=== PATIENT | female | born 1990 ===

== ENCOUNTER 2024-05-09 00:42 | Outpatient (CLI) | payer MEDICAID, SELFPAY ==
[2024-05-09] MEDS: Inhaler, Assist Device 1 EACH MC (13:48)
[2024-05-09] MEDS: Levalbuterol HFA 15 GM INH 4 PUFF IH (13:48)
--- NOTE | 2024-05-12 14:41 | W.PFT ---
Date of service: 05/09/24 Time of Service: 12:50 Pulmonary Function Test Result Indications: Asthma Interpretation Spirometry: No airflow limitation. No bronchodilator response. Lung Volumes: Normal lung volumes Diffusion Capacity: Normal diffusion Airway Pressure: Normal airways resistance Impression Normal pulmonary function Clinical Correlation therefore is recommended.
== END 2024-05-09 00:43 | disposition home or self-care (01) ==
LOC: RT 00:42
PROVIDERS: PCP Nurse Practitioner Family; Visit Provider Student in an Organized Health Care Education/Training Program
DX: J45.909 Unspecified asthma, uncomplicated (principal)
CPT/HCPCS: 94060; 94726; 94729

== ENCOUNTER 2024-05-23 00:47 | Outpatient (CLI) | payer MEDICAID, SELFPAY ==
--- NOTE | 2024-05-23 | DI.US_ITS ---
Exam(s) US BREAST RT COMPLETE EXAM: US BREAST RT COMPLETE CLINICAL HISTORY: Mass of rt breast, 10 o'clock, 3 cm from edge of areola, N63.10-Unspecified. TECHNIQUE: Complete ultrasound of the breast was performed including all 4 quadrants, the retroareo lar region, and the ipsilateral axilla. COMPARISON: Prior mammograms were reviewed. FINDINGS: See combined report IMPRESSION: See combined report Breast density Category C or D implies that the patient has dense breast tissue. Dense breast tissue can make it harder to find cancer on a mammogram. Dense breast tissue is also associated with an incr eased risk of breast cancer. This information about the result of the mammogram report was provided to the patient to raise their awareness. Use this report when you speak with the patient about their risks for breast cancer, which includes their family history. At that time, you may recommend additional screening tests (Ultrasoun d or MRI) as these tests may add significant information. A negative radiographic report should not delay biopsy if a dominant or clinically suspicious mass is present. Up to ten percent of cancers are not identified on mammography. A negative report may reinforce clinical impression. Adenosis and dense breasts may obscure an underlying neoplasm. False positive reports average 6 to 10%. Patient will receive a letter notifying them of these results.
--- NOTE | 2024-05-23 13:48 | DI.MAMMO_ITS ---
Exam(s) MAMMO DIAGNOSTIC BI EXAM: MAMMO DIAGNOSTIC BI AND COMPLETE RIGHT BREAST ULTRASOUND CLINICAL HISTORY: Mass of rt breast, N63.10-unspecified lump in rt breast. TECHNIQUE: BILATERAL CC AND MLO MAMMOGRAPHIC IMAGES were obtained with 3D tomosynthesis technique an d utilizing computer aided detection (CAD). Also performed exaggerated CC view of the right breast COMPLETE RIGHT BREAST ULTRASOUND performed including all 4 quadrants as well as the axillary region. COMPARISON: This is a baseline study on this 33-year-old patient who recently felt a lump in the upp er outer quadrant of her right breast. She feels that it has slightly decreased in size. She denies recent skin rash. FINDINGS: DIAGNOSTIC BILATERAL MAMMOGRAM: There are no CAD designations. No spiculated masses nor malignant-appearing microcalcification groups in either breast. There is no significant architectural distortion or skin thickening-retraction. COMPLETE RIGHT BREAST ULTRASOUND: There is no evidence of solid or significant cystic lesions in all 4 quadrants of the right breast. Scanning of the right axilla is negative for significant adenopathy. IMPRESSION: 1. No radiographic evidence of malignancy 2. Negative complete right breast ultrasound. Appropriate follow-up is repeat breast imaging 3 months if symptoms persist. If symptoms persist would also recommend referral to breast surgeon despite absence of findings on co nventional breast imaging The patient was informed of the findings by myself prior to leaving the department today. BI-RADS Category 2 - Benign Findings Breast Density - Category B - Scattered areas of fibroglandular density Breast density Category C or D implies that the patient has dense breast tissue. Dense breast tissue can make it harder to find cancer on a mammogram. Dense breast tissue is also associated with an incr eased risk of breast cancer. This information about the result of the mammogram report was provided to the patient to raise their awareness. Use this report when you speak with the patient about their risks for breast cancer, which includes their family history. At that time, you may recommend additional screening tests (Ultrasoun d or MRI) as these tests may add significant information. A negative radiographic report should not delay biopsy if a dominant or clinically suspicious mass is present. Up to ten percent of cancers are not identified on mammography. A negative report may reinforce clinical impression. Adenosis and dense breasts may obscure an underlying neoplasm. False positive reports average 6 to 10%. Patient will receive a letter notifying them of these results.
== END 2024-05-23 01:07 ==
LOC: DI 00:47
PROVIDERS: PCP Nurse Practitioner Family; Visit Provider Nurse Practitioner Family
DX: Z12.31 Encounter for screening mammogram for malignant neoplasm of breast (principal); N63.11 Unspecified lump in the right breast, upper outer quadrant
CPT/HCPCS: 76642; 77062; 77066; G0279

== ENCOUNTER 2024-11-20 19:16 | Outpatient (REF) | payer MEDICAID, SELFPAY ==
[2024-11-20 19:24] LABS: Abs Immature Grans 0.03 10^3/uL (0.0-0.06); HCT 39.9 % (36.0-46.0); HGB 12.8 g/dL (11.2-15.7); Immature Grans % 0.4 %; MCH 27.9 pg (27.0-33.0); MCHC 32.1 % (32.0-36.0); MCV 87 fL (80-95); MPV 9.0 fL (8.0-11.0); Platelet Count 333 10^3/uL (130-400); RBC 4.59 10^6/uL (3.93-5.22); RDW 12.5 % (11.7-14.6); RDW-SD 39.7 fL; WBC 7.08 10^3/uL (4.4-10.8)
[2024-11-20 19:45] LABS: ALT 32 U/L (14-59); AST 18 U/L (15-37); Albumin 4.1 g/dL (3.4-5.0); Alkaline Phosphatase 117 U/L (46-116); Anion Gap 9.2 mmol/L (3-11); BUN 10 mg/dL (7-18); Bilirubin, Total 0.5 mg/dL (0.2-1.0); CO2 28.8 mmol/L (21.0-32.0); Calcium 9.1 mg/dL (8.5-10.1); Chloride 104 mmol/L (98-107); Estimated GFR 115.59 (mL/min/1.73m2); Ferritin 22 ng/mL (8-252); Glucose 92 mg/dL (74-106); Potassium 4.3 mmol/L (3.5-5.1); Sodium 142 mmol/L (136-145); TSH (W/Ref FT4) 0.51 uIU/mL (0.36-3.74); Total Protein 7.1 g/dL (6.4-8.2)
[2024-11-20 20:03] LABS: Hemoglobin A1C 4.8 % (<5.7)
[2024-11-21 18:53] LABS: HIV-1/2 Ag & Ab Screen Negative (Negative)
[2024-11-21 18:58] LABS: Hepatitis C Ab w Rflx HCV PCR Negative (Negative)
== END 2024-11-20 19:17 | disposition home or self-care (01) ==
LOC: NCHCN 19:16
PROVIDERS: PCP Nurse Practitioner Family; Visit Provider Nurse Practitioner Family
DX: R53.83 Other fatigue (principal)
CPT/HCPCS: 80053; 82550; 86803; 87389; 82728; 83036; 84443; 85025

== ENCOUNTER → 2024-12-18 09:36 | Outpatient (CLI) | payer MEDICAID, SELFPAY ==
--- NOTE | 2024-12-18 09:30 | DI.RAD_ITS ---
Exam(s) XR CERVICAL SPINE COMP 4-5V EXAM: XR CERVICAL SPINE COMP 4-5V CLINICAL HISTORY: Radiculopathy/ M54.12. TECHNIQUE: 2D digital imaging was performed. COMPARISON: No exams were available for comparison FINDINGS: Five views No evidence of fracture, listhesis, nor offset of the spinal laminar line. All the disc spaces exhibit normal height and there is no osseous lipping. Facet joints appear unremarkable. There are prominent bilateral transverse processes of C7 noted. No significant osseous lesions. Bone density is normal. IMPRESSION: No acute osseous findings. No disc space narrowing. Prominent bilateral transverse process is at C7 level noted. DATA REPOSITORY: RADIATION DOSE DELIVERED:
== END ==
LOC: DI 09:37
PROVIDERS: PCP Nurse Practitioner Family; Visit Provider Nurse Practitioner Family
DX: M54.12 Radiculopathy, cervical region (principal)
CPT/HCPCS: 72050

== ENCOUNTER 2025-01-21 11:05 | Emergency (ER) | payer MEDICAID, SELFPAY ==
[2025-01-21 11:09] VITALS: BP 117/77; PULSE 85; RESP 16; TEMP 36.4; O2SAT 97
--- NOTE | 2025-01-21 11:30 | DI.CT_ITS ---
Exam(s) CT ABDOMEN PELVIS CTA EXAM: CT ABDOMEN PELVIS CTA CLINICAL HISTORY: GI bleeding. TECHNIQUE: Imaging Protocol: Axial computed tomography images with coronal and sagittal reformatted images were created and reviewed CONTRAST MATERIAL: Intravenous: Omnipaque 350 Contrast volume:75ml Oral: None COMPARISON: No exams were available for comparison FINDINGS: ABDOMEN: VISUALIZED LUNG BASES: No infiltrates nor pleural effusions GI:There is no intraluminal extravasation of the injected IV contrast to point to a culprit bleeding site in the GI tract. No evidence of esophageal varices. No evidence of bowel obstruction, free air, nor abscess. No evidence of obvious colitis pattern nor significant diverticular disease in the colon. There is no ascites. LIVER: There are no focal hepatic lesions nor dilatation of intrahepatic ducts. GALLBLADDER/BILIARY: There are very subtle intraluminal densities in the nondistended gallbladder and the gallbladder wall exhibits some mild enhancement. There is no pericholecystic fluid. The CBD is not dilated. PANCREAS: No evidence of pancreatic mass nor dilatation of the pancreatic duct. SPLEEN: There is mild splenomegaly. Craniocaudal measurement of the spleen is 13.6 cm. There are no splenic lesions. The splenic and portal veins are patent. ADRENALS: There are no significant adrenal masses. KIDNEYS: No cysts evident. No calculi nor hydronephrosis. No solid renal masses. ABDOMINAL AORTA: Unremarkable. No aneurysm. No significant atherosclerotic disease in the aorta and aortoiliac segments. No evidence of emboli within the SMA. No significant plaque at the origin of the mesenteric arteries nor at the origin of the renal arteries. LYMPH NODES: There is no retroperitoneal nor para-aortic adenopathy. No obvious mesenteric masses. ABDOMINAL WALL: No evidence of significant anterior abdominal wall hernia. PELVIS: LYMPH NODES: There is no intrapelvic nor inguinal adenopathy. GI: No evidence of appendicitis.No evidence of sigmoid diverticulitis. URINARY BLADDER: No calculi nor masses evident REPRODUCTIVE: Anteverted uterus size is normal. There are follicular cysts in the right ovary measuring up to 1.5 cm. Smaller follicles noted in the opposite-left ovary. There is no free fluid in the pelvis. OSSEOUS: No significant osseous lesions. No fractures. No listhesis. IMPRESSION: 1. There is no intraluminal extravasation of the injected IV contrast to suggest a culprit bleeding site. No evidence of bowel obstruction, free air, nor abscess. No evidence of obvious colitis, diverticulitis, nor appendicitis. 2. Mild splenomegaly. No splenic lesions. 3. Subtle gallbladder findings. Recommend follow-up ultrasound examination to determine if there are gallstones. Report called by myself to ER physician 01/21/2025 at 2:27 p.m. RADIATION DOSE DELIVERED: 1,155.07mGy.cm Total DLP DATA REPOSITORY: All CT scans at this facility are submitted to the National Radiology Data Registry (NRDR) Dose Index Registry (DIR) with the [employer] ([employer]). RADIATION OPTIMIZATION: All CT scans at this facility use at least one of these dose optimization techniques: automated exposure control; mA and/or kV adjustment per patient size (includes targeted exams where dose is matched to clinical indication); or iterative reconstruction.
--- NOTE | 2025-01-21 11:33 | ED.GENADUL_ITS ---
Discharge Plan Disposition Patient Disposition: Home Condition: Stable Discharge Details Clinical Impression: Rectal bleeding Primary Care Provider: Sheila Salazar ED Provider: Miky Young Home Meds and New Rx's Prescriptions: Continued venlafaxine 150 mg capsule,extended release 24hr 150 mg PO QAM amitriptyline 10 mg tablet 20 mg PO DAILY venlafaxine 37.5 mg tablet 37.5 mg PO DAILY prochlorperazine maleate 5 mg tablet See Rx Instructions PO TID PRN (Reason: headache and/or nausea) Qty: 30 3RF Rx Instructions: 5-10 mg orally three times a day PRN; cyclobenzaprine 5 mg tablet 5 mg PO TID PRN (Reason: muscle spasm) Qty: 14 0RF Nurtec ODT 75 mg tablet,disintegrating 75 mg PO ONCE PRN (Reason: migraine headache) Qty: 10 12RF Rx Instructions: As a single dose. No more than one dose in 24 hours. Aimovig Autoinjector 140 mg/mL auto-injector 140 mg subcut QMONTH Qty: 1 11RF pantoprazole 40 mg tablet,delayed release (DR/EC) 40 mg PO DAILY albuterol sulfate [Ventolin HFA] 90 mcg/actuation HFA aerosol inhaler 2 puff inhalation 6XD Discharge Instructions Instructions: Bloody Stools, Adult ED Additional Instructions: You were seen in the emergency department for the rectal bleeding experience this morning, possibly an internal hemorrhoid that you need to monitor yourself for any further stool changes with possibility of getting referral to [facility] for [facility]oscopy, your blood work and CT were all reassuring for no significant bleeding or signs of infection, most of the time rectal bleeding will resolve without issue it could signify an oncoming stomach bug or of diarrhea. Please monitor your condition and return for any emergent concerns. Stand Alone Forms: Portal Information Referrals: Sheila Salazar [Primary Care Provider, Medicine] Discharge Data Discharge Date/Time-TO BE ENTERED AT DEPARTURE: 01/21/25 15:09 HPI General Date/Time Provider Initiated Documentation: 01/21/25 11:31 . HPI Narrative: 34 year-old female presents to ED today by POV/ambulating with a chief complaint of blood in stool this morning- a fair amount but not filling entire bowl, then some passage of clot the size of a pen tip, with onset today only. Quality described as generally feels off, abdominal pressure, no radiation to recent dietary changes, nausea/vomiting, fever, severe focal abdominal pain, diarrhea. Severity is described as mild. Palliating factors include nothing specific atte mpted. Provoking factors include nothing specific. Patient not anticoagulated. Related Data Home Medications ?Medication ?Instructions ?Recorded ?Confirmed albuterol sulfate 90 mcg/actuation 2 puff inhalation 6 XD 04/30/24 01/21/25 aerosol inhaler (Ventolin HFA) pantoprazole 40 mg tablet,delayed 40 mg PO DAILY 04/3001/21/25 release venlafaxine 150 mg 150 mg PO QAM 06/09/2401/21 capsule,extended release 24 hr amitriptyline 10 mg tablet 20 mg PO DAILY 09/04/2405/13 prochlorperazine maleate 5 mg See Rx Instructions PO T ID PRN 09/04/24 01/21/25 tablet headache and/or nausea #30 t abs venlafaxine 37.5 mg tablet 37.5 mg PO DAILY 09/04/24 1 03/24/24 cyclobenzaprine 5 mg tablet 5 mg PO TID PRN muscle spa sm #14 12/18/24 01/21/25 tabs erenumab-aooe 140 mg/mL 140 mg subcut QMONTH #1 mL 1 03/07/24 01/21/25 subcutaneous auto-injector (Aimovig Autoinjector) rimegepant 75 mg disintegrating 75 mg PO ONCE PRN migr jannie 01/05/25 01/21/25 tablet (Nurtec ODT) headache #10 tabs Previous Rx's ?Medication ?Instructions ?Recorded prochlorperazine maleate 5 mg See Rx Instructions PO T ID PRN 09/04/24 tablet headache and/or nausea #30 t abs cyclobenzaprine 5 mg tablet 5 mg PO TID PRN muscle spa sm #14 12/18/24 tabs erenumab-aooe 140 mg/mL 140 mg subcut QMONTH #1 mL 1 03/07/24 subcutaneous auto-injector (Aimovig Autoinjector) rimegepant 75 mg disintegrating 75 mg PO ONCE PRN migr jannie 01/05/25 tablet (Nurtec ODT) headache #10 tabs Allergies Allergy/AdvReac Type Severity Reaction Status Date / Time topiramate Allergy Severe Anaphylaxis Verified 01/21/25 11:13 mirtazapine Allergy Unknown Other (See Verified 01/21/25 11:13 Comment) sertraline Allergy Unknown Nausea Verified 01/21/25 11:13 clindamycin Allergy Other (See Verified 01/21/25 11:13 Comment) Penicillins Allergy Other (See Verified 01/21/25 11:13 Comment) metoclopramide (From Reglan) AdvReac Unknown Other (See Verified 01/21/25 11:13 Comment) General Stated Complaint: GI Bleed [place]: 4 Review of Systems All systems reviewed & are unremarkable except as noted in HPI and below Exam Narrative Exam Narrative: GENERAL APPEARANCE: Well-nourished, non-toxic, awake and alert, atraumatic, no acute distress. SKIN: Warm, pink, dry, intact, without rashes/lesions/ulcerations. HEAD: Normocephalic, atraumatic, normal hair distribution for gender/age. EYES: Normal conjunctiva, no exudates on lids/lashes. ENT: Nares patent, no circumoral cyanosis, no facial swelling NECK: Supple, trachea midline, painless cervical ROM. LUNGS/CHEST: Lungs CTA bilaterally-no rhonchi/rales/wheeze diffusely, non- labored respirations, normal A/P diameter, symmetrical expansion, no chest wall deformity HEART (CV/PV): Regular rate and rhythm without murmur, no peripheral edema, no JVD. ABDOMEN: Soft, non-distended, no guarding, no focal tenderness, no sherrill blood on EUNICE, no significant masses palpated. MSK: Normal ROM, no swelling/deformity to bilateral UEs or LEs, moving all extremities without weakness, no cyanosis, spine midline without tenderness, normal curvature. NEURO: Mental Status AAOx4 - alert to person, place, time, events No facial droop, no forehead involvement. Motor: No focal weakness - strength 5/5 in bilateral UEs and LEs, proximal and distal, symmetric. Sensory: sensation intact to light touch globally. Gait normal: patient ambulated without ataxia into ED room. PSYCH: euthymic, cooperative, pleasant, appropriate speech Course Vital Signs Vital signs: Vital Signs Temperature 36.4 C L 01/21/25 11:09 Pulse 85 01/21/25 11:09 Respiratory Rate 16 01/21/25 11:09 Blood Pressure 117/77 01/21/25 11:09 Pulse Oximetry 97 01/21/25 11:09 Temperature 36.4 C L 01/21/25 11:09 Temperature Source Oral 01/21/25 11:09 Pulse 85 01/21/25 11:09 Respiratory Rate 16 01/21/25 11:09 Blood Pressure 117/77 01/21/25 11:09 Pulse Oximetry 97 01/21/25 11:09 Pain Level 5 01/21/25 11:09 Medical Decision Making This dictation utilizes [id number] dictation software and may contain unedited grammatical errors. 34 year-old female presents to ED today by POV/ambulating with a chief complaint of blood in stool this morning- a fair amount but not filling entire bowl, then some passage of clot the size of a pen tip, with onset today only. Quality described as generally feels off, abdominal pressure, no radiation to recent dietary changes, nausea/vomiting, fever, severe focal abdominal pain, diarrhea. Severity is described as mild. Palliating factors include nothing specific attempted. Provoking factors include nothing specific. Events leading up to the incident/Associated Symptoms: Patient has not had colonoscopy before. Patients' medical history: History of ovarian cyst, obesity, asthma, eosinophilic esophagitis. Family and social history: Noncontributory. Pertinent exam findings / vital signs include no abdominal tenderness, no CVA tenderness to percussion, no sherrill blood on EUNICE, no masses palpated, stable vitals nontoxic. Differential / pathologies of concern include rectal bleeding, internal hemorr hoids, early sign of infectious diarrhea possible, less likely IBD. Diagnostic studies of: - CBC, CMP, PT/INR/PTT, CRP/ESR, lactate, lipase, UA, type and screen, CTA abdomen/pelvis. - CBC is completely normal - CRP and ESR negative, not likely IBD - Coagulation studies benign - Type and screen O+ with negative antibody screen - Lactate negative do not suspect acute GI hemorrhage for significant bleeding - Magnesium within normal limits - CMP within normal limits - Lipase within normal limits - CMP shows no acute abnormalities of the bowel or colon, nonspecific incidental findings in the gallbladder, possible gallstones asymptomatic, noted 1.5 cm ovarian cyst not likely to cause torsion Interventions of: - None. ED Course/Assessment/Plan: 34-year-old female presents for isolated rectal bleeding feeling about half the toilet bowl and passage of blood clot the size of a pen tip, her EUNICE is unremarkable, labs and imaging unremarkable, counseled on following up with PCP for referral for colonoscopy if this keeps happening, strict return criteria for any further significant GI b.leeding Findings not consistent with acute hemorrhage, anemia, palpated hemorrhoids, IBD, infectious diarrhea. Disposition of Rectal Bleeding. Patient verbalized understanding of the plan and return to ED criteria and engaged in shared decision making. Medical Records Medical records reviewed: Yes I reviewed the patient's medical records. Imaging Data Radiologic Study: Attestation: I personally reviewed and interpreted this imaging study as follows: Imaging: CT Scan Radiologist's impression: EXAM: CT ABDOMEN PELVIS CTA CLINICAL HISTORY: GI bleeding. TECHNIQUE: Imaging Protocol: Axial computed tomography images with coronal and sagittal reformatted images were created and reviewed CONTRAST MATERIAL: Intravenous: Omnipaque 350 Contrast volume:75ml Oral: None COMPARISON: No exams were available for comparison FINDINGS: ABDOMEN: VISUALIZED LUNG BASES: No infiltrates nor pleural effusions GI:There is no intraluminal extravasation of the injected IV contrast to point to a culprit bleeding site in the GI tract. No evidence of esophageal varices. No evidence of bowel obstruction, free air, nor abscess. No evidence of obvious colitis pattern nor significant diverticular disease in the colon. There is no ascites. LIVER: There are no focal hepatic lesions nor dilatation of intrahepatic ducts. GALLBLADDER/BILIARY: There are very subtle intraluminal densities in the nondistended gallbladder and the gallbladder wall exhibits some mild enhancement. There is no pericholecystic fluid. The CBD is not dilated. PANCREAS: No evidence of pancreatic mass nor dilatation of the pancreatic duct. SPLEEN: There is mild splenomegaly. Craniocaudal measurement of the spleen is 13.6 cm. There are no splenic lesions. The splenic and portal veins are patent. ADRENALS: There are no significant adrenal masses. KIDNEYS: No cysts evident. No calculi nor hydronephrosis. No solid renal masses. ABDOMINAL AORTA: Unremarkable. No aneurysm. No significant atherosclerotic disease in the aorta and aortoiliac segments. No evidence of emboli within the SMA. No significant plaque at the origin of the mesenteric arteries nor at the origin of the renal arteries. LYMPH NODES: There is no retroperitoneal nor para-aortic adenopathy. No obvious mesenteric masses. ABDOMINAL WALL: No evidence of significant anterior abdominal wall hernia. PELVIS: LYMPH NODES: There is no intrapelvic nor inguinal adenopathy. GI: No evidence of appendicitis.No evidence of sigmoid diverticulitis. URINARY BLADDER: No calculi nor masses evident REPRODUCTIVE: Anteverted uterus size is normal. There are follicular cysts in the right ovary measuring up to 1.5 cm. Smaller follicles noted in the opposite-left ovary. There is no free fluid in the pelvis. OSSEOUS: No significant osseous lesions. No fractures. No listhesis. IMPRESSION: 1. There is no intraluminal extravasation of the injected IV contrast to suggest a culprit bleeding site. No evidence of bowel obstruction, free air, nor abscess. No evidence of obvious colitis, diverticulitis, nor appendicitis. 2. Mild splenomegaly. No splenic lesions. 3. Subtle gallbladder findings. Recommend follow-up ultrasound examination to determine if there are gallstones. Report called by myself to ER physician 01/21/2025 at 2:27 p.m. Lab Data Lab results reviewed: Yes I reviewed the patient's lab results. Labs: Laboratory Tests Range/Units 01/21/25 01/21/25 12:00 12:04 WBC (4.4-10.8) 10^3/uL 7.79 RBC (3.93-5.22) 10^6/uL 4.67 Hgb (11.2-15.7) g/dL 13.2 Hct (36.0-46.0) % 40.0 MCV (80-95) fL 86 MCH (27.0-33.0) pg 28.3 MCHC (32.0-36.0) % 33.0 RDW (11.7-14.6) % 12.6 Plt Count (130-400) 10^3/uL 313 MPV (8.0-11.0) fL 8.3 Immature Gran % % 0.6 Neutrophils % % 63.2 Lymphocytes % % 25.2 Monocytes % % 6.4 Eosinophils % % 4.1 Basophils % % 0.5 Nucleated RBC % (0.0-0.3) % 0.0 Absolute Neutrophils (1.2-6.7) 10^3/uL 4.92 Absolute Lymphocytes (1.2-3.4) 10^3/uL 1.96 Absolute Monocytes (0.1-0.8) 10^3/uL 0.50 Absolute Eosinophils (0.0-0.7) 10^3/uL 0.32 Absolute Basophils (0.0-0.2) 10^3/uL 0.04 ESR (0-20) mm/hr 8 PT (9.1-11.1) sec 9.8 INR (0.9-1.1) 1.0 APTT (20.6-30.2) sec 27.0 VBG Lactate (<or=2.0) mmol/L 0.9 Sodium (136-145) mmol/L 140 Potassium (3.5-5.1) mmol/L 4.3 Chloride (98-107) mmol/L 107 Carbon Dioxide (20.0-31.0) mmol/L 25.2 Anion Gap (3-11) mmol/L 7.8 BUN (9-23) mg/dL 11 Creatinine (0.55-1.02) mg/dL 0.70 Est GFR (CKD-EPI 2020) (mL/min/1.73m2) 94.90 Glucose (74-106) mg/dL 91 Calcium (8.3-10.6) mg/dL 9.5 Magnesium (1.6-2.6) mg/dL 2.1 Total Bilirubin (0.2-1.2) mg/dL 0.40 AST (<34) U/L 29 ALT (10-49) U/L 45 Alkaline Phosphatase (46-116) U/L 99 C-Reactive Protein (<=0.50) mg/dL < 0.50 Total Protein (5.7-8.2) g/dL 7.0 Albumin (3.2-5.0) g/dL 4.3 Lipase (<53) U/L 39 Urine Color (Yellow) Yellow Urine Clarity (Clear) Cloudy Urine pH (5-8) 7.0 Ur Specific [place] (1.005-1.025) 1.020 Urine Protein (Neg-Trace) mg/dL Negative Urine Ketones (Negative) mg/dL Negative Urine Blood (Negative) Small H Urine Nitrite (Negative) Negative Urine Bilirubin (Negative) Negative Urine Urobilinogen (Up to 0.2) mg/dL 0.2 Ur Leukocyte Esterase (Negative) Trace H Urine RBC (0-2) HPF 3-5 H Urine WBC (0-5) HPF 0-2 Ur Epithelial Cells (Negative) HPF Few Urine Crystals (Negative) HPF Few Amorphous Urine Bacteria (Negative) HPF Few Urine Casts (Negative) LPF Negative Urine Mucus (Negative) Negative Ur Culture Indicated? No Urine Glucose (Negative) mg/dL Negative ABO/Rh O Positive Antibody Screen NEGATIVE PFSH All Active Problems (Updated 01/21/25 @ 14:36 by YOLANDE Flowers) Rectal bleeding (Acute) Migraine headache without aura (Acute) Asthma (Chronic) Migraine (Chronic) Obesity (Chronic) Chronic headache disorder (Acute) Pain, joint, knee, right (Acute) Mixed anxiety and depressive disorder (Acute) Stricture esophagus (Acute) Eosinophilic esophagitis (Acute) Medical History Acute CVA (cerebrovascular accident) Brainstem stroke at age 16 Surgical History S/P removal of ovarian cyst Status post dilation of esophageal narrowing Family History Father CHF (congestive heart failure), NYHA class I Sleep apnea Hypertension Pericarditis Brother , AGE 35 [place] CHF (congestive heart failure), NYHA class I Hypertension Myocardial infarction Mother Hypertension Sleep apnea Anxiety Diabetes Social History Smoking/Tobacco Use Status: Never Smoking risk assessment performed?: Yes Alcohol Intake: never Substance use type: does not use Housing: house Do you feel safe at home: Yes Do you feel safe in your relationship?: Yes
[2025-01-21 12:14] LABS: Abs Immature Grans 0.05 10^3/uL (0.0-0.06); HCT 40.0 % (36.0-46.0); HGB 13.2 g/dL (11.2-15.7); Immature Grans % 0.6 %; MCH 28.3 pg (27.0-33.0); MCHC 33.0 % (32.0-36.0); MCV 86 fL (80-95); MPV 8.3 fL (8.0-11.0); Platelet Count 313 10^3/uL (130-400); RBC 4.67 10^6/uL (3.93-5.22); RDW 12.6 % (11.7-14.6); RDW-SD 39.3 fL; WBC 7.79 10^3/uL (4.4-10.8)
[2025-01-21 12:16] LABS: ESR 8 mm/hr (0-20)
[2025-01-21 12:24] LABS: Glucose Negative (Negative)
[2025-01-21 12:28] LABS: INR 1.0 (0.9-1.1); PTT Activated 27.0 sec (20.6-30.2); Prothrombin Time 9.8 sec (9.1-11.1)
[2025-01-21 12:34] LABS: C-Reactive Protein < 0.50 mg/dL (<=0.50); Lipase 39 U/L (<53); Magnesium 2.1 mg/dL (1.6-2.6)
[2025-01-21 12:36] LABS: ALT 45 U/L (10-49); AST 29 U/L (<34); Albumin 4.3 g/dL (3.2-5.0); Alkaline Phosphatase 99 U/L (46-116); Anion Gap 7.8 mmol/L (3-11); BUN 11 mg/dL (9-23); Bilirubin, Total 0.40 mg/dL (0.2-1.2); CO2 25.2 mmol/L (20.0-31.0); Calcium 9.5 mg/dL (8.3-10.6); Chloride 107 mmol/L (98-107); Glucose 91 mg/dL (74-106); Potassium 4.3 mmol/L (3.5-5.1); Sodium 140 mmol/L (136-145); Total Protein 7.0 g/dL (5.7-8.2)
[2025-01-21 12:38] LABS: C & S Indicated? No; WBC 0-2 HPF (0-5)
[2025-01-21] MEDS: Omnipaque 350 MG/ML 100 ML BTL IJ (13:46)
[2025-01-21] MEDS: Normal Saline - Diluent 50 ML VIAL IJ (13:47)
[2025-01-21 15:07] VITALS: BP 114/71; PULSE 75; RESP 14; TEMP 36.7; O2SAT 99
== END 2025-01-21 15:09 | disposition home or self-care (01) ==
PROVIDERS: Emergency Provider Physician Assistant; PCP Nurse Practitioner Family
DX: K62.5 Hemorrhage of anus and rectum (principal); Z86.73 Personal history of transient ischemic attack (TIA), and cerebral infarction without residual deficits
CPT/HCPCS: 36415; 80053; 81025; 83690; 85652; 86850; 86900; 86901; 99285; 74174; 81003; 81015; 83605; 83735; 85025; 85610; 85730; 86140; 99284; J3490